=== PATIENT | female | born 1975 | race Caucasian/White ===

== ENCOUNTER 2017-09-12 10:45 | Day surgery (SDC) | payer OTHER ==
[~2017-09-12] VITALS: Ht 162.6 cm; Wt 86.2 kg
[~2017-09-12 10:45] MED LIST: ACYCLOVIR400 MG PO; AUGMENTIN875 MG PO; BACTROBAN CREAM15 GM TP; DAILY VITE1 EAC1 PO; EFFEXOR25 MG PO; LYRICA50 MG PO; MOBIC7.5 MG PO; NEURONTIN100 MG PO; PERCOCET 5/31 TABLET PO; ROXICODONE5 MG PO; VENLAFAXINE HCL75 M3 PO
== END 2017-09-12 12:45 | disposition home or self-care (01) ==
LOC: PAIN 10:45
DX: M51.16 Intervertebral disc disorders with radiculopathy, lumbar region (principal); M54.41 Lumbago with sciatica, right side; G89.29 Other chronic pain; M48.07 Spinal stenosis, lumbosacral region; E66.9 Obesity, unspecified; Z68.33 Body mass index [BMI] 33.0-33.9, adult; Z79.891 Long term (current) use of opiate analgesic
CPT/HCPCS: J1100; J2250; J3010

== ENCOUNTER 2017-10-11 09:46 | Day surgery (SDC) | payer OTHER ==
[~2017-10-11] VITALS: Ht 162.6 cm; Wt 89.4 kg
[~2017-10-11 09:46] MED LIST changes: +MILLIPRED5 MG PO
== END 2017-10-11 11:45 | disposition home or self-care (01) ==
LOC: PAIN 09:46 → SDC 10:15 → PAIN 11:45
PROC: 3E0R3BZ Introduction of Anesthetic Agent into Spinal Canal, Percutaneous Approach (ICD-10-PCS; principal; 2017-10-11)
PROC: 3E0R33Z Introduction of Anti-inflammatory into Spinal Canal, Percutaneous Approach (ICD-10-PCS; principal; 2017-10-11)
DX: M51.17 Intervertebral disc disorders with radiculopathy, lumbosacral region (principal); G89.29 Other chronic pain; M96.1 Postlaminectomy syndrome, not elsewhere classified; E66.9 Obesity, unspecified; Z68.35 Body mass index [BMI] 35.0-35.9, adult; F41.9 Anxiety disorder, unspecified; Z79.891 Long term (current) use of opiate analgesic
CPT/HCPCS: J1100; J2250; J3010